=== PATIENT | male | born 1950 | race Caucasian/White ===

== ENCOUNTER 2024-06-13 06:26 | Day surgery (SDC) | payer MEDICARE ==
[2024-06-13] MEDS: Lactated Ringers 1,000 ML IV SCH (06:40)
[2024-06-13 06:52] VITALS: RESP 16
[2024-06-13] MEDS ORDERED: propofoL IV ONE ×3 (08:00→09:01)
[2024-06-13 09:58] VITALS: BP 137/84; PULSE 50; TEMP 96.9; O2SAT 99
--- NOTE | 2024-06-14 21:14 | OP ---
SURGERY DATE/TIME: 06/13/2024 [id number] PREOPERATIVE DIAGNOSIS: Positive Cologuard. POSTOPERATIVE DIAGNOSIS: Colon polyps x6. PROCEDURE: Colonoscopy. SURGEON: Shyam Raman MD ANESTHESIA: MAC by Junior Faith CRNA. ESTIMATED BLOOD LOSS: Minimal. SPECIMEN: Three hot forceps polypectomies and 3 hot snare polypectomies. DESCRIPTION OF PROCEDURE AND FINDINGS: After informed written consent was obtained, the patient was taken to the endoscopy suite. He underwent moderate anesthesia and digital rectal exam showed normal sphincter tone and no internal lesions. The scope was inserted into the rectum, and sequentially, the entire colonic mucosa was traversed. The level of the cecum was reached and verified with direct visualization of the ileocecal valve. Upon withdrawal, there were multiple polyps encountered. One was at the splenic flexure, removed with hot forceps. Just distal to that in the proximal descending colon at 60 cm scope depth, there was a large, pedunculated polypoid lesion that was concerning appearing. Snare was placed around it and it was cauterized at the base, retrieved, and sent for pathology. Multiple other areas were sampled with hot forceps afterwards until it was felt the entire lesion was satisfactorily removed. The area was hemostatic and looked good. I did tattoo the base of that area at 60 cm scope depth due to the concerning large lesion but it came off nicely with fairly thin stalk. There were 2 other large sigmoid colon polyps which were likewise encircled with a snare, cauterized at the base, and removed and sent for pathology testing. One of those was at 30 cm scope depth. They all came off with good result and were hemostatic afterwards. Two other smaller polypoid lesions in the sigmoid. One was in the distal sigmoid just proximal to the rectum. Those were likewise grasped with a forceps, cauterized, and removed in their entirety with good result. All areas were hemostatic following removal. There were no immediate complications. Prior to withdrawal, retroflexion showed no internal lesions. The scope was removed, and the patient was transferred to the recovery room in good condition. He has been advised to follow up in 1 week for pathology results and further recommendations at that time.
== END 2024-06-13 10:10 | disposition home or self-care (01) ==
LOC: SDC 06:26
PROVIDERS: ATTEND Family Medicine
DX: D12.4 Benign neoplasm of descending colon (principal); D12.5 Benign neoplasm of sigmoid colon; D12.3 Benign neoplasm of transverse colon; R19.5 Other fecal abnormalities; E11.9 Type 2 diabetes mellitus without complications
CPT/HCPCS: 82947; 99100; J2704